=== PATIENT | female | born 1980 | race Caucasian/White ===

== ENCOUNTER → 2017-10-01 | Outpatient (CLI) | payer OTHER ==
[2017-10-01 17:39] LABS: BASO # 0.1 10^3/uL (0.0-0.2); BASO % 0.8 % (0.0-1.0); EOS # 0.2 10^3/uL (0.0-0.50); EOS % 1.7 % (0.0-3.0); HEMATOCRIT 38.8 % (36.0-47.0); HEMOGLOBIN 12.1 g/dl (12.0-16.0); IMMATURE GRANULOCYTE % 0.9 % (0-3.0); LYMPH # 3.3 10^3/uL (1.5-4.5); LYMPH % 31.8 % (24.0-44.0); MEAN CORPUSCULAR HEMOGLOBIN 25.4 pg (27.0-33.0); MEAN CORPUSCULAR HGB CONC 31.2 g/dl (32.0-36.5); MEAN CORPUSCULAR VOLUME 81.5 fl (80.0-96.0); MONO # 0.7 10^3/uL (0.0-0.8); MONO % 6.6 % (0.0-5.0); NEUTROPHILS # 6.1 10^3/uL (1.8-7.7); NEUTROPHILS % 58.2 % (36.0-66.0); PLATELET COUNT, AUTOMATED 272 10^3/uL (150-450); RED BLOOD COUNT 4.76 10^6/uL (4.00-5.40); RED CELL DISTRIBUTION WIDTH 15.9 % (11.5-14.5); WHITE BLOOD COUNT 10.5 10^3/uL (4.0-10.0)
[2017-10-01 17:46] LABS: THYROID STIMULATING HORMONE 0.603 uIU/ML (0.358-3.740)
[2017-10-01 17:46] LABS: FOLLICLE STIMULATING HORMONE 6.4 mIU/mL; LUTEINIZING HORMONE 1.9 mIU/mL
== END ==
LOC: M SMT 14:28
DX: R10.2 Pelvic and perineal pain (principal)
CPT/HCPCS: 83001

== ENCOUNTER → 2018-01-27 | Outpatient (CLI) | payer OTHER | LOC: M SMT 10:45 | DX: R10.2 Pelvic and perineal pain (principal) | CPT/HCPCS: 76830 ==

== ENCOUNTER → 2018-02-02 | Outpatient (REF) | payer OTHER | LOC: M LAB REF 17:36 | DX: R10.2 Pelvic and perineal pain (principal) ==

== ENCOUNTER → 2020-11-21 | Outpatient (CLI) | payer MEDICARE, OTHER ==
[~2020-11-21] MED LIST: APAP325T4 PO; ASPI81TA26 PO; BETH10TA4 PO; CLIN300C2 PO; COLA100C5 PO; DEPO-PROVERA INJ; DULO1CAP6 PO; EMGA120I SC; FISH1000 PO; FLEXERIL PO; FLOM0.4C39 PO; GABA-1171 PO; GABA-282 PO; GABA800T4 PO; IBUP80TA PO; KEFL500C17 PO; LASI40TA9 PO; LORA-243 PO; MAGN400C2 PO; METO10TA2 PO; MS C15TA8 PO; NORC1TAB8 PO; PERCOCET PO; POTA10TA16 PO; PROT1TAB2 PO; PROT20TA11 PO; SERO50TA PO; SIMV20TA22 PO; SYNT75TA PO; TEST200I14 IM; TOPA100T12 PO; TRAM50TA2 PO; TRAZ-252 PO; TRIM100T8 PO; TRUL10IN SC; VITA200021 PO; ZOFR4TAB14 PO
== END ==
LOC: M LABSMTC 09:31
PROVIDERS: ATTEND Anesthesiology
DX: Z20.828 Contact with and (suspected) exposure to other viral communicable diseases (principal); Z11.59 Encounter for screening for other viral diseases

== ENCOUNTER 2020-11-26 10:52 | Observation (INO) | payer MEDICARE, OTHER ==
[~2020-11-26] VITALS: Ht 162.6 cm; Wt 95.3 kg
[~2020-11-26 10:52] MED LIST changes: +LR 1,000 ML IV ONE; +UNRESOLVED CLARIFICATION ENTRY XX SCH
[2020-11-26] MEDS ORDERED: CIPROFLOXACIN 400 MG in IV 1 EA IV ONE (11:50)
[2020-11-26] MEDS ORDERED: dexameTHASONE 4 MG/ML 1ML VIAL (J1100 PER 1MG) As Ordered ONE (12:15)
[2020-11-26] MEDS ORDERED: ROCURONIUM BROMIDE 50 MG/5 ML VIAL As Ordered ONE ×2 (12:15→16:07)
[2020-11-26] MEDS ORDERED: LIDOCAINE 2% 100MG/5ML SDV (FOR ANES.) As Ordered ONE (12:15)
[2020-11-26] MEDS ORDERED: propofoL 200 MG/20 ML VIAL As Ordered ONE (12:15)
[2020-11-26] MEDS ORDERED: ONDANSETRON 4MG/2ML VIAL As Ordered ONE (12:15)
[2020-11-26] MEDS ORDERED: MIDAZOLAM INJ 2MG/2ML VIAL (J2250 PER 1MG) As Ordered ONE (12:16)
[2020-11-26] MEDS ORDERED: fentaNYL 250 MCG/5 ML INJECTION (J3010) As Ordered ONE (12:16)
[2020-11-26] MEDS ORDERED: LIDOCAINE 1% MDV 20ML VIAL As Ordered ONE (14:17)
[2020-11-26] MEDS ORDERED: EPINEPHrine INJ 1 MG/ML 1ML AMP As Ordered ONE (14:17)
[2020-11-26] MEDS ORDERED: BACITRACIN PWD 50,000 UNITS VIAL As Ordered ONE (14:17)
[2020-11-26] MEDS ORDERED: HEPARIN SOD (PORCINE) 5000UNITS/ML 1ML VIAL/SYRINGE As Ordered ONE (14:35)
[2020-11-26] MEDS ORDERED: HEPARIN SOD (PORCINE) 5000UNITS/ML 1ML VIAL/SYRINGE SQ ONE (14:55)
[2020-11-26] MEDS ORDERED: BUPIVACAINE LIPOSOME/PF 1.3% 20ML VIAL (13.3MG/ML)(EXPAREL)(C9290 PER1MG) As Ordered ONE (15:00)
[2020-11-26] MEDS ORDERED: METOCLOPRAMIDE INJ 10MG/2ML VIAL (J2765 PER 1) As Ordered ONE (15:26)
[2020-11-26] MEDS ORDERED: ACETAMINOPHEN 1000MG 100ML IV BTL (OFIRMEV) (J0131 PER 10MG) As Ordered ONE (15:26)
[2020-11-26] MEDS ORDERED: SUGAMMADEX SODIUM 500 MG/5 ML VIAL (BRIDION) As Ordered ONE (15:43)
[2020-11-26] MEDS: GABAPENTIN 400MG CAP PO SCH ×2 (16:00→20:41)
--- NOTE | 2020-11-26 17:37 | ROOPDOC ---
[facility] Report Of Operation Report of Operation DATE OF PROCEDURE: 11/26/20 PREOPERATIVE DIAGNOSIS: Bilateral breast hypertrophy, gender dysphoria. POSTOPERATIVE DIAGNOSIS: same FINDINGS: Female chest pattern PROCEDURE: Chest masculinization procedure with help of subcutaneous mastectomies, lateral chest liposuction and free nipple graft. SURGEON: Dr Gomez BREAKFAST AND ROOM ATTENDANT: Dr Mcgee ANESTHESIA: general SPECIMENS: Right breast 440 gm, Left breast 547 gm, liposuction fluid 300 ml. ESTIMATED BLOOD LOSS: 75 cc REPLACED: none DRAINS: 10 mm MUSA x 2 COMPLICATIONS: none POSTOPERATIVE CONDITION: stable DESCRIPTION OF PROCEDURE: This is a 40-year-old transgender male who willing to have chest masculinization procedure. Patient fits the criteria for the procedure. He has stopped testosterone 3 weeks ago. Risks, benefits, and alternatives were discussed with the patient in detail, and he is ready to proceed. The day of surgery, he was marked in the upright position and informed consent was obtained. He measured 29 cm from sternal notch to nipple on both sides, IMF at 22 cm bilaterally. Patient was marked according to double incision subcutaneous mastectomy. He was brought into the operating room and placed in the supine position. Preoperative antibiotics and 5000 units heparin subcutaneous were given. Sequential pneumatic stocking were placed on the lower calves. General anesthesia was induced. He was prepped and draped in the usual sterile fashion. We started our procedure on the right side. Nipple areolar complex was outlined 20 mm in diameter. Superior incision carried out followed by the inframammary incision. Started undermining the flap with thick edges from the superior incision toward the midportion of the pectoralis major then the breast was removed starting from top to the inferior incision at the inframammary line along the pectoralis fascia. Total weight on the right side is 440 grams. Hemostasis was obtained using electrocautery. We used Exparel 6 cc for local anesthesia to infiltrate in the Pectoralis muscle. Started closing the flap with interrupted 0 Vicryl sutures. 10 mm Helder-Man drain was placed through the separate stab incision. Then we turn our attention to the left side. Nipple areolar complex was outlined 20 mm in diameter. Superior incision carried out followed by the inframammary incision. Started undermining the flap with thick edges from the superior incision toward the midportion of the pectoralis major then the breast was removed starting from top to the inferior incision at the inframammary line along the pectoralis fascia. Hemostasis was obtained using electrocautery. Total weight left side 547 g. We used Exparel 6 cc for local anesthesia to infiltrate in the Pectoralis muscle. Started closing the flap with interrupted 0 Vicryl sutures. 10 mm Helder-Man drain was placed through the separate stab incision. Tumescent solution was infiltrated on the lateral chest bilaterally totaling 150 on each side, then the VASER liposuction was performed 2 minutes on each side followed by regular light suction to remove the rest of the fatty tissue. Total liposuction 300 mL. 50 mL of tumescent solution infiltrated middle of the chest and suction assisted lipectomy performed to smooth out the contour. Than the continued our closure of inframammary incisions with interrupted 3-0 Monocryl sutures followed by 3-0 Monocryl V lock suture. Breast tissue removed was stored on the sterile table. At this point we harvested the nipple areolar complex from each breast. Tissue was defatted and transferred to a chest as a free graft. Location of the nipple is 2.5 cm from inframammary line. Oval incision 1.5x2.4cm was created for the Nipple areolar complex graft was secured in place with interrupted 4-0 and 5-0 chromic sutures. Bolster dressing was applied and secured in place with 4-0 nylon sutures. Remaining Exparel injected in the horizontal incision. Total Exparel use 20 cc. Resected tissue sent to pathology in two specimens right and left breast tissue. Dressings were applied to vertical and horizontal incision: Xeroform, bulky dressing and binder. Patient was extubated in the operating room without difficulty and was transferred to the recovery room in stable condition. STEVE GOMEZ DO Nov 26, 2020 17:37
--- NOTE | 2020-11-26 17:37 | POST-OPPD ---
Postoperative Procedure Note Date Of Procedure: Nov 26, 2020 PREOPERATIVE DIAGNOSIS: Bilateral breast hypertrophy, gender dysphoria. POSTOPERATIVE DIAGNOSIS: same FINDINGS: Female chest pattern PROCEDURE: Chest masculinization procedure with help of subcutaneous mastectomies, lateral chest liposuction and free nipple graft. SURGEON: Dr Gomez LAW OFFICE RECEPTIONIST: Dr Mcgee ANESTHESIA: general SPECIMENS: Right breast 440 gm, Left breast 547 gm, liposuction fluid 300 ml. ESTIMATED BLOOD LOSS: 75 cc REPLACED: none DRAINS: 10 mm MUSA x 2 COMPLICATIONS: none POSTOPERATIVE CONDITION: stable STEVE GOMEZ DO Nov 26, 2020 17:37
[2020-11-26] MEDS ORDERED: ACETAMINOPHEN TAB 650MG DOSE (2X325MG) PO PRN (17:40)
[2020-11-26] MEDS ORDERED: ONDANSETRON 4MG/2ML VIAL IV PRN ×2 (17:40→18:00)
[2020-11-26] MEDS ORDERED: fentaNYL 100 MCG/2 ML INJECTION (J3010) As Ordered ONE (17:44)
[2020-11-26] MEDS ORDERED: LR 1,000 ML IV SCH (18:00)
[2020-11-26] MEDS ORDERED: METOCLOPRAMIDE INJ 10MG/2ML VIAL (J2765 PER 1) IV PRN (18:00)
[2020-11-26] MEDS ORDERED: MEPERIDINE INJ 25 MG/ML VIAL (J2175) IV PRN (18:00)
[2020-11-26] MEDS: fentaNYL 100 MCG/2 ML INJECTION (J3010) IV PRN ×4 (18:23→18:39)
[2020-11-26] MEDS: oxyCODONE 5MG TAB PO PRN ×2 (18:24→18:58)
[2020-11-26 19:40] VITALS: BP 121/80
[2020-11-26 20:10] VITALS: BP 123/81
[2020-11-26] MEDS: LR 1,000 ML IV SCH (20:41)
[2020-11-26] MEDS: TOPIRAMATE (TopAMAX) 100 MG TAB PO SCH (20:41)
[2020-11-26] MEDS: DOCUSATE SODIUM 100MG CAPSULE PO SCH (20:42)
[2020-11-26] MEDS: POTASSIUM CHLORIDE 10 MEQ SR TABLET PO SCH (20:42)
[2020-11-26] MEDS: BETHANECHOL 10 MG TAB PO SCH (20:42)
[2020-11-26] MEDS: PERCOCET 5MG/325MG TAB PO PRN (20:46)
[2020-11-26] MEDS ORDERED: traZODone 50 MG TAB PO PRN (21:00)
[2020-11-26] MEDS ORDERED: SIMVASTATIN 20 MG TAB PO SCH (21:00)
[2020-11-26] MEDS ORDERED: QUEtiapine FUMARATE 50MG TAB PO SCH (21:00)
[2020-11-26 21:10] VITALS: BP 124/84
[2020-11-26 22:10] VITALS: BP 123/81
[2020-11-26] MEDS: MORPHINE 4 MG/ML 1ML VIAL/SYRINGE (J2270) IV PRN (22:32)
[2020-11-26 23:20] VITALS: BP 122/82
[2020-11-27 00:15] VITALS: BP 120/79
[2020-11-27] MEDS: PERCOCET 5MG/325MG TAB PO PRN ×3 (01:09→11:54)
[2020-11-27] MEDS: MORPHINE 4 MG/ML 1ML VIAL/SYRINGE (J2270) IV PRN (03:24)
[2020-11-27 06:00] VITALS: BP 113/74
[2020-11-27] MEDS ORDERED: LEVOTHYROXINE 75MCG TABLET (0.075MG) PO SCH (06:00)
[2020-11-27] MEDS: LR 1,000 ML IV SCH (07:00)
[2020-11-27] MEDS ORDERED: LORATADINE 10 MG TAB PO SCH (09:00)
[2020-11-27] MEDS ORDERED: FUROSEMIDE 40 MG TAB PO SCH (09:00)
[2020-11-27] MEDS ORDERED: PANTOPRAZOLE 20 MG TAB PO SCH (09:00)
--- NOTE | 2020-11-27 09:59 | IPNPDOC ---
Subjective General Date Seen: Nov 27, 2020 Subject Chief Complaint/History The patient is a 40-year-old female admitted with a reason for visit of Gender Dysphoria, Breast Hypertrophy. Patient s/p chest masculinization procedure POD 1. Doing well. Pain controlled. Tolerating diet. Current Medications Current Medications Current Medications Medications (Trade) Dose Ordered Sig/Estefany Route PRN Reason Start Time Stop Time Status Last Admin Dose Admin Acetaminophen (Tylenol Tab) 650 mg Q6H PRN PO MILD PAIN (PS 1-4) 11/26/20 17:40 Bethanechol Chloride (Urecholine) 10 mg BID PO 11/26/20 21:00 11/26/20 20:42 Docusate Sodium (Colace) 100 mg BID PO 11/26/20 21:00 11/26/20 20:42 Fentanyl Citrate (Sublimaze) 25 mcg Q5MP PRN IV PAIN LEVEL 5-10 11/26/20 18:00 11/26/20 19:00 DC 11/26/20 18:39 Furosemide (Lasix) 40 mg DAILY PO 11/27/20 09:00 Gabapentin (Neurontin) 800 mg TID PO 11/26/20 16:00 11/26/20 20:41 Lactated Ringer's 1,000 ml @ 75 mls/hr [id number] IV 11/26/20 17:40 11/26/20 20:41 Lactated Ringer's 1,000 ml @ 100 mls/hr Q10H IV 11/26/20 18:00 11/26/20 19:00 DC 11/26/20 17:35 Levothyroxine Sodium (Synthroid) 75 mcg DAILY@0600 PO 11/27/20 06:00 11/27/20 05:06 Loratadine (Claritin) 10 mg DAILY PO 11/27/20 09:00 Meperidine HCl (Demerol) 12.5 mg Q5MP PRN IV SHIVERING 11/26/20 18:00 11/26/20 19:00 DC Metoclopramide HCl (REGLAN INJection) 10 mg Q6HP PRN IV NAUSEA OR VOMITING 11/26/20 18:00 11/26/20 19:00 DC Miscellaneous (Unresolved Clarification Entry) SEE LABEL COMMENTS UNRESOLVED XX 11/26/20 00:01 11/26/20 11:47 DC Morphine Sulfate (Morphine Sulfate Inj) 4 mg Q4HP PRN IV SEVERE PAIN (PS 8-10) 11/26/20 17:40 11/27/20 03:24 Ondansetron HCl (ZOFRAN INJection) 4 mg Q4H PRN IV NAUSEA OR VOMITING 11/26/20 17:40 Ondansetron HCl (ZOFRAN INJection) 4 mg Q4HP PRN IV NAUSEA OR VOMITING 11/26/20 18:00 11/26/20 19:00 DC Oxycodone HCl (Roxicodone, Oxyir) 5 mg ASDIRECTED PRN PO PAIN LEVEL 1-4 11/26/20 18:00 11/26/20 19:00 DC 11/26/20 18:58 Oxycodone/ Acetaminophen (Percocet 5mg/ 325mg Tablet) 2 tab Q4HP PRN PO PAIN LEVEL 4-7 11/26/20 17:40 11/27/20 06:09 Pantoprazole Sodium (Protonix) 20 mg DAILY PO 11/27/20 09:00 Potassium Chloride (Micro-K Extencaps) 10 meq BID PO 11/26/20 21:00 11/26/20 20:42 Quetiapine Fumarate (SEROquel) 150 mg QHS PO 11/26/20 21:00 11/26/20 20:42 Simvastatin (Zocor) 20 mg QPM PO 11/26/20 21:00 11/26/20 20:41 Topiramate (TopAMAX) 100 mg BID PO 11/26/20 21:00 11/26/20 20:41 Trazodone HCl (Desyrel) 50 mg QHSP PRN PO SLEEP 11/26/20 21:00 11/27/20 01:09 Allergies Coded Allergies: TAPE (Verified Allergy, Unknown, 11/19/20) Penicillins (Verified Adverse Reaction, Mild, vomiting, 11/26/20) clarithromycin (Verified Adverse Reaction, Mild, vomiting, 11/26/20) clindamycin (Verified Adverse Reaction, Mild, vomiting, 11/26/20) ketorolac (Verified Adverse Reaction, Mild, vomiting, 11/26/20) naproxen (Verified Adverse Reaction, Mild, vomiting, 11/26/20) Objective Physical Examination Examination GENERAL APPEARANCE:Patient seen, laying in bed, awake, alert, and oriented. Comfortable, in no acute distress. SKIN: Warm and moist. BREAST: Right and left soft, non-tender incisions intact. MUSA drains: 78/38 cc/24 hr. Post op ecchymosis, minimal tenderness. NAC with bolster dressings intact. LUNGS: Clear to auscultation bilaterally. No wheezing appreciated. HEART: No chest wall abnormalities. Regular rate and rhythm with no murmurs appreciated. ABDOMEN: Abdomen is soft, non-tender, non-distended. EXTREMITIES: No edema identified. No calf tenderness. Vital Signs Vital Signs Date Time Temp Pulse Resp B/P (MAP) Pulse Ox O2 Delivery O2 Flow Rate FiO2 11/27/20 06:47 18 11/27/20 06:00 97.2 67 113/74 (87) 94 Room Air 11/26/20 19:00 10.0 I&Os I&O- Last 24 Hours up to 6 AM 11/27/20 05:59 Intake Total 4700 ml Output Total 1813 ml Balance 2887 ml Laboratory Data Labs 24H Laboratory Tests 2 11/26/20 11:35: Bedside Glucose (Misc Panel) 127H 11/26/20 22:20: Bedside Glucose (Misc Panel) 222H 11/27/20 06:24: Bedside Glucose (Misc Panel) 131H Impression Gender dysphoria. S/p chest masculinization procedure. Dressings changed. Stable for discharge. Continue with support garment. Monitor drains and document daily output. No heavy lifting. Pain control. F/up plastic surgery. Plan / VTE VTE Prophylaxis Ordered?: Yes STEVE GOMEZ DO Nov 27, 2020 09:59
[2020-11-27] MEDS ORDERED: PERCOCET PO (10:27)
[2020-11-27] MEDS: POTASSIUM CHLORIDE 10 MEQ SR TABLET PO SCH (11:53)
[2020-11-27] MEDS: TOPIRAMATE (TopAMAX) 100 MG TAB PO SCH (11:53)
[2020-11-27] MEDS: DOCUSATE SODIUM 100MG CAPSULE PO SCH (11:53)
[2020-11-27] MEDS: GABAPENTIN 400MG CAP PO SCH (11:54)
[2020-11-27] MEDS: BETHANECHOL 10 MG TAB PO SCH (11:54)
[2020-11-27 14:00] VITALS: BP 111/68
== END 2020-11-27 16:30 | disposition home or self-care (01) ==
LOC: M SDC 10:52 → M MS5PR 10:53
PROVIDERS: ADMIT Plastic Surgery Surgery of the Hand; ATTEND Plastic Surgery Surgery of the Hand
DX: N62 Hypertrophy of breast (principal); F64.8 Other gender identity disorders; E11.9 Type 2 diabetes mellitus without complications; E03.9 Hypothyroidism, unspecified; K21.9 Gastro-esophageal reflux disease without esophagitis; F32.9 Major depressive disorder, single episode, unspecified; Z79.899 Other long term (current) drug therapy; Z79.82 Long term (current) use of aspirin; Z88.0 Allergy status to penicillin; Z88.8 Allergy status to other drugs, medicaments and biological substances; Z88.1 Allergy status to other antibiotic agents
CPT/HCPCS: 15877; 19303; 81025; 88300; 88305; 96374; 96376; C9290; G0378; J0131; J0744; J1100; J1644; J2250; J2270; J2405; J2765; J3010